=== PATIENT | male | born 1970 | race African-American/Black ===

== ENCOUNTER 2018-08-06 08:27 | Inpatient (IN) | payer OTHER ==
[2018-08-06] VITALS (7 sets, daily range): BP systolic 92–125; BP diastolic 56–85
[~2018-08-06] VITALS: Ht 172.7 cm; Wt 74.0 kg
[~2018-08-06 08:27] MED LIST: ACETAMINOPHEN650 M5 PO; ASPIRIN EC81 M1 PO; ASPIRIN325 PO; ASPIRIN81 M2 PO; ATACAND4 MG PO; CARVEDILOL12.5 MG PO; CARVEDILOL6.25 MG PO; COREG PO; CRESTOR; CRESTOR10 MG PO; EFFIENT10 MG PO; IBUPROFEN 800800 M1 PO; IMDUR 30 MG TAB30 M1 PO; IRON325 PO; LISINOPRIL5 MG PO; LORTAB 5-500 T1 EAC1 PO; MINIPRIN81 MG PO; MOTION RELIEF25 MG PO; MULTIVITAMINS PO; NITROGLYCERIN0.4 MG SL; NITROGLYCERIN0.4 MG SUBLING; PERCOCET 5-3251 EACH PO; SIMVASTATIN40 MG PO; SIMVASTATIN80 MG PO; TOPROL XL25 MG PO; TRAMADOL 50 MG50 MG PO; TRANDATE; VITAMIN B-12100 MC1 PO; VITAMIN B-12500 MCG PO; ZETIA10 MG PO; ZOCOR40 MG PO
[2018-08-06 08:45] LABS: HEMATOCRIT 43.3 % (42.0-52.0); HEMOGLOBIN 14.5 gm/dL (14.0-18.0); MCH 30.3 pg (26.0-34.0); MCHC 33.4 g/dL (28.0-37.0); MCV 90.8 fL (80.0-100.0); PLATELET COUNT 173 thou/uL (150-400); RBC 4.77 mil/uL (4.50-6.00)
[2018-08-06 08:56] LABS: ANION GAP 9 mmol/L (7-16); BUN 15 mg/dL (7-18); CALCIUM 9.2 mg/dL (8.5-10.1); CHLORIDE 104 mmol/L (98-107); CO2 28 mmol/L (21-32); CREATININE 1.3 mg/dL (0.7-1.3); GLUCOSE 82 mg/dL (74-106); POTASSIUM 3.7 mmol/L (3.5-5.1); SODIUM 141 mmol/L (136-145)
[2018-08-06 09:05] LABS: TROPONIN-I <0.06 ng/mL (<0.06)
--- NOTE | 2018-08-06 09:25 | EKG ---
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: ALYCIA : 1970 Requested By: Trista Michel Order Number: [id number] MD: Austin Castaneda Measurements Intervals [place] Rate: 78 P: 65 NC: 152 QRS: 38 QRSD: 90 T: 56 QT: 384 QTc: 438 Interpretive Statements Sinus rhythm Anteroseptal infarct, age indeterminate Compared to ECG 03/04/2014 23:52:47 no significant change was found Electronically Signed On 08-06-2018 9:25:43 CDT by Austin Castaneda [email or web address] ��������������������������������������������� <ELECTRONICALLY SIGNED> ���������������������������������������� By: Austin Castaneda MD, [facility] ��������������������������������������������� 08/06/18 0925 0832 1 Austin Castaneda MD, FACC /EPI
[2018-08-06 09:28] LABS: ANISOCYTOSIS SLIGHT
[2018-08-06 13:11] LABS: CHOLESTEROL 289 mg/dL (<200); HDL CHOLESTEROL 59 mg/dL (>40); LDL CHOLESTEROL 204 mg/dL (<100); TC:HDL 4.9 Ratio (Not establshd); TRIGLYCERIDE 134 mg/dL (<150); VLDL 27 mg/dL (<40)
--- NOTE | 2018-08-06 16:17 | 2DMMODE ---
[facility] [address] [place] [address] 2 D/M-MODE ECHOCARDIOGRAM Name: ARSEN CALHOUNGIN KENROY Room #: 353-P [facility] IN M.R.#: [id number] ������������� Admission: 08/06/18 ������������� Attend Phys: Tashi Dobbins, Discharge: ��� ������������� ��� Date of : 72 Date of Service: 08/06/18 1616 �� Report #: [id number] �������� ��������������������������������������������[id number] THIS REPORT FOR: //name// APPROVED REPORT Study performed: 08/06/2018 11:44:09 EXAM: Comprehensive 2D, Doppler, and color-flow Echocardiogram Patient Location: Bedside Room #: [facility] Status: routine BSA: 1.91 HR: 60 bpm BP: 122/85 mmHg Rhythm: NSR Other Information Study Quality: Good Risk Factors: Cardiac Risk Factors: HTN, Hyperlipidemia Indications Dyspnea CAD Cardiomyopathy Chest Pain CABG x2 (2013) Previous MD 2D Dimensions IVSd: 9.53 (7-11mm) LVOT Diam: 19.00 (18-24mm) LVDd: 48.25 mm PWd: 10.11 (7-11mm) Ascending Ao: 26.11 (22-36mm) LVDs: 40.07 (25-40mm) Aortic Root: 28.55 mm LV Single Plane 4CH: 43.83 % LV Single Plane 2CH: 50.40 % Biplane EF: 45.8 % Volumes Left Atrial Volume (Systole) Single Plane 4CH: 37.64 mL Single Plane 2CH: 54.30 mL LA ESV Index: 31.00 mL/m2 [facility] [address] [place] [address] 2 D/M-MODE ECHOCARDIOGRAM Name: ELIAS CALHOUN Room #: 353-P [facility] IN M.R.#: [id number] ������������� Admission: 08/06/18 ������������� Attend Phys: Tashi Dobbins, Discharge: ��� ������������� ��� Date of : 72 Date of Service: 08/06/18 1616 �� Report #: [id number] �������� ��������������������������������������������[id number] Aortic Valve AoV Peak Du.: 0.98 m/s AO Peak Gr.: 4.15 mmHg LVOT Max P.41 mmHg LVOT Max V: 0.78 m/s TALIB Vmax: 2.19 cm2 Mitral Valve E/A Ratio: 1.1 MV Decel. Time: 243.46 ms MV E Max Du.: 0.49 m/s MV A Du.: 0.44 m/s MV PHT: 70.60 ms IVRT: 64.59 ms TDI E/Lateral E': 6.13 E/Medial E': 7.00 Medial E' Du.: 0.07 m/s Lateral E' Du.: 0.08 m/s Pulmonary Valve PV Peak Du.: 0.61 m/s PV Peak Gr.: 1.48 mmHg NV End Vmax: 0.99 m/s Pulmonary Vein P Vein S: 0.48 m/s P Vein A: 0.24 m/s P Vein D: 0.35 m/s P Vein A Dur.: 93.4 msec P Vein S/D Ratio: 1.37 Tricuspid Valve RAP Estimate: 7.00 mmHg Left Ventricle The left ventricle is normal size. There is normal left ventricular wall thickness. Left ventricular systolic function is mildly decreased. Hypokinesis of septum and apex LVEF is 45%. The left ventricular diastolic function is normal. Right Ventricle The right ventricle is normal size. The right ventricular systolic function is normal. Atria The left atrium size is normal. The right atrium size is normal. Aortic Valve [facility] [address] [place] [address] 2 D/M-MODE ECHOCARDIOGRAM Name: ELIAS CALHOUN Room #: 353-P [facility] IN .R.#: [id number] ������������� Admission: 08/06/18 ������������� Attend Phys: Tashi Dobbins, Discharge: ��� ������������� ��� Date of : 72 Date of Service: 08/06/18 1616 �� Report #: [id number] �������� ��������������������������������������������[id number] The aortic valve is normal in structure. Trace aortic regurgitation. There is no aortic valvular stenosis. Mitral Valve The mitral valve is normal in structure. There is no mitral valve regurgitation noted. No evidence of mitral valve stenosis. Tricuspid Valve The tricuspid valve is normal in structure. Trace tricuspid regurgitation. Unable to assess PA pressure. Pulmonic Valve The pulmonary valve is normal in structure. Trace pulmonic regurgitation. Great Vessels The aortic root is normal in size. IVC is normal in size and collapses >50% with inspiration. Pericardium There is no pericardial effusion. <Conclusion> Left ventricular systolic function is mildly decreased. Hypokinesis of septum and apex LVEF is 45%. The aortic valve is normal in structure. Trace aortic regurgitation, no stenosis. The mitral valve is normal in structure. No mitral valve regurgitation. Pulmonary artery pressure could not be reliably ascertained. There is no pericardial effusion. ��������������������������������������������� <ELECTRONICALLY SIGNED> ���������������������������������������� By: Austin Castaneda MD, FACC ��������������������������������������������� 08/06/18 1616 1616 1616 Austin Castaneda MD, FACC /INF
--- NOTE | 2018-08-06 16:21 | NUR ---
Assumed care of patient at approx 1100. PT admitted from ER. Presented this morning with chest pain, rating pain as 10/10. Pt reports that chest pain began two nights ago and woke him from his sleep. Says that he thoght it was heartburn but was not relieved by taking Tums. At presentation to ER pt reports feeling like an elephant was on his chest. Patient has a very extensive cardiac hx, inlcuding IL, multiple stents, and CABG. Cardiology visited with pt at the bedside and has advised that pt will go to the lab support service tech. Currently scheduled for tomorrow morning. Pt to be NPO after minight. Patient currently reports pain of 5/10 but denies the need for pain medication. Will continue to monitor and assess as pt is not yet progressing toward POC goals.
[2018-08-06] MEDS ORDERED: COZAAR 25 MG TA25 M1 PO (18:46)
[2018-08-07 04:30] VITALS: BP 99/68
--- NOTE | 2018-08-07 04:43 | NUR ---
ASSUMED PT CARE AROUND 1900. A&OX4. PT DENIED ANY CHEST PAIN DURING THE NIGHT. NPO AFTER MIDNIGHT. UP AD MYRA WITH STEADY GAIT. PT SLEPT MOST OF THE NIGHT. RESP EVEN AND UNLABORED. VSS. AFEBRILE. PROGRESSING TOWARD POC GOALS. WILL CONTINUE TO MONITOR FURTHER.
[2018-08-07 09:18] VITALS: BP 106/74
[2018-08-07 12:31] VITALS: BP 106/74
--- NOTE | 2018-08-07 13:51 | NUR ---
Assumed care of Pt at 0700. Pt AOx4 in no acute distress. Denies pain. Breathing comfortably on room air. NPO since MN for cardiac cath. no occlusions found. good collateral circulation. bedrest for 3 hours. vitals stable. post cath education given. pt understanding and agreeable. left with sister who is RN reportedly. sinus on telemetry.
--- NOTE | 2018-08-07 15:19 | EKG ---
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1970 Requested By: Lupe Vega Order Number: [id number] MD: Rubin Pate Measurements Intervals [place] Rate: 65 P: 63 AR: 153 QRS: 28 QRSD: 87 T: 35 QT: 404 QTc: 421 Interpretive Statements Sinus rhythm left atrial enlargement Biphasic T wave in lead 2 consider proximal lad lesion Nonspecific ST/T wave changes Compared to ECG 08/06/2018 08:32:45 Myocardial infarct finding no longer present Electronically Signed On 08-07-2018 15:19:10 CDT by Rubin Pate [email or web address] ��������������������������������������������� <ELECTRONICALLY SIGNED> ���������������������������������������� By: Rubin Pate MD ��������������������������������������������� 08/07/18 1519 0739 0739 Rubin Pate MD /EPI
--- NOTE | 2018-08-07 16:11 | CATHLAB ---
[facility] [place] [address] INVASIVE PROCEDURE REPORT Name: ELIAS CALHOUN Room #: 353-P [facility] IN [facility].#: [id number] ������������� Admission: 08/06/18 ������������� Attend Phys: Tashi Dobbins, Discharge: ��� 08/07/18 ������������� ��� Date of : 72 Date of Service: 08/07/18 1611 �� Report #: [id number] �������� ��������������������������������������������[id number] THIS REPORT FOR: //name// APPROVED REPORT Study performed: 08/07/2018 07:50:29 Patient Details The patient is a 48 year-old male Event Personnel Lazaro Gaitan Belt Repairer, Choco Macedo RN, Swetha Sutherland RTR, FOOD PHOTOGRAPHER Monitor, Alyse De La Rosa Scrub Procedures Performed Left Heart Cath Coronaries, Bypass Grafts [id number] LHCCORCABG Indication Dyspnea, Chest pain Risk Factors Hypercholesterolemia, Coronary Artery DiseaseHypertension Previous Procedures/Diagnoses Previous CABGPrevious PCI Procedure Narrative The Right Groin^ was infiltrated with 1% Lidocaine subcutaneous anesthesia. A PINNACLE 4FR Sheath #[id number] sheath was inserted into the RFA^. Coronary angiography was performed using coronary diagnostic catheters. The right coronary system was accessed and visualized with a JR4 catheter. The left coronary system was accessed and visualized with a JL4 catheter. The left ventricle was accessed and visualized with a PIGTAIL catheter. Left ventricular/Aortic Valve gradient assessed via catheter pullback. Hemostasis was obtained with manual pressure following sheath removal without any complications. The patient tolerated the procedure well and there were no complications associated with the procedure. There was no hematoma. Intraoperative Conscious Sedation Sedation start time: 812 Case end Time: 851 Fentanyl 50 mcg Versed 1 mg [facility] [address] [place] [address] INVASIVE PROCEDURE REPORT Name: ELIAS CALHOUN Room #: 353-P [facility] IN [facility].#: [id number] ������������� Admission: 08/06/18 ������������� Attend Phys: Tashi Dobbins, Discharge: ��� 08/07/18 ������������� ��� Date of : 72 Date of Service: 08/07/18 1611 �� Report #: [id number] �������� ��������������������������������������������[id number] Fluoro Time: 6.60 minutes Dose: DAP 7725.00 cGycm2 1227 mGy Contrast Type and Amount: Omnipaque 100 ml Coronary Angiography The patient's coronary anatomy is right dominant. [place] Artery Percent Stenosis Left Main: % Prox LAD: 80 % Mid/Distal LAD: % Circumflex: % RCA: 100 % Ramus: % Diagnostic Cath Left Main The left main artery is a patent vessel, with mild disease distally. LAD There is a severe restenosis in the proximal segment, 80%. There is a patent GURROLA graft with an end-to-side anastomosis to the mid LAD. After the anastomosis, there is both retrograde and antegrade flow in the [place] LAD vessel. Diagonal 1 This is a patent vessel, with no flow-limiting lesions. Circumflex The [place] left circumflex artery is a moderate size caliber vessel, with minimal plaquing. OM1 This is a patent vessel, with no flow-limiting lesions. OM2 This is a moderate size caliber vessel, patent with no flow-limiting lesions. Right Coronary The free SALLY graft to the RCA is occluded in the midsegment. R PDA This vessel is filled via collateral circulation from the LAD. RPLV This vessel is filled via collateral circulation from the left circumflex artery. Left Ventriculography The left ventricular ejection fraction is estimated to be 45-50%. Hemodynamics The aortic pressure is 105/72 mmHg with a mean of 79 mmHg. The left ventricular pressure is 113/8 mmHg with a mean of mmHg. The left ventricular end diastolic pressure is 22 mmHg. Conclusion 1. Patent GURROLA graft to the LAD. 2. Patent [place] left circumflex and obtuse marginal arteries. [facility] [address] [place] [address] INVASIVE PROCEDURE REPORT Name: ELIAS CALHOUN Room #: 353-P [facility] IN [facility].#: [id number] ������������� Admission: 08/06/18 ������������� Attend Phys: Tashi Dobbins, Discharge: ��� 08/07/18 ������������� ��� Date of : 72 Date of Service: 08/07/18 1611 �� Report #: [id number] �������� ��������������������������������������������[id number] 3. Occluded free SALLY graft to the RCA. The distal RCA branches are filled via collateral circulation from the left coronary artery. 4. Mild global LV dysfunction. 5. Recommend aggressive risk factor management. ��������������������������������������������� <ELECTRONICALLY SIGNED> ���������������������������������������� By: Lazaro Gaitan MD ��������������������������������������������� 08/07/181610 10 10 Lazaro Gaitan MD /INF
== END 2018-08-07 14:05 | disposition home or self-care (01) | DRG 287 ==
LOC: ER 08:27 → EROBS 10:00 → 3W 10:00
PROVIDERS: Emergency Medicine; Nurse Practitioner; ADMIT Internal Medicine
PROC: B2181ZZ Fluoroscopy of Left Internal Mammary Bypass Graft using Low Osmolar Contrast (ICD-10-PCS; principal; 2018-08-07)
PROC: B2111ZZ Fluoroscopy of Multiple Coronary Arteries using Low Osmolar Contrast (ICD-10-PCS; principal; 2018-08-07)
PROC: 4A023N7 Measurement of Cardiac Sampling and Pressure, Left Heart, Percutaneous Approach (ICD-10-PCS; principal; 2018-08-07)
PROC: B2131ZZ Fluoroscopy of Multiple Coronary Artery Bypass Grafts using Low Osmolar Contrast (ICD-10-PCS; principal; 2018-08-07)
DX: I25.119 Atherosclerotic heart disease of native coronary artery with unspecified angina pectoris (principal); I25.5 Ischemic cardiomyopathy; I10 Essential (primary) hypertension; E78.5 Hyperlipidemia, unspecified; I25.10 Atherosclerotic heart disease of native coronary artery without angina pectoris; E78.00 Pure hypercholesterolemia, unspecified; F32.9 Major depressive disorder, single episode, unspecified; Z95.5 Presence of coronary angioplasty implant and graft; Z79.82 Long term (current) use of aspirin; Z79.899 Other long term (current) drug therapy; I25.2 Old myocardial infarction; Z95.1 Presence of aortocoronary bypass graft; Z87.891 Personal history of nicotine dependence
CPT/HCPCS: 10879